=== PATIENT | female | born 1975 | race Caucasian/White ===

== ENCOUNTER 2016-05-08 15:52 | Emergency (ER) | payer SELFPAY ==
[2016-05-08] MEDS ORDERED: fentaNYL Inj 100 MCG/2 ML VIAL IVP ONE ×2 (16:02→17:07)
[2016-05-08] MEDS ORDERED: KETOROLAC 30 MG/1 ML VIAL IVP ONE (16:02)
[2016-05-08] MEDS ORDERED: ONDANSETRON 4 MG/2 ML VIAL IVP ONE (16:02)
[2016-05-08] MEDS ORDERED: Sodium Chloride 0.9% 1,000 ML PRIMARY IV ONE (16:02)
[2016-05-08] MEDS ORDERED: NORMAL SALINE 10 ML SYRINGE FLUSH IVP PRN (16:02)
[2016-05-08 16:21] LABS: BASOPHILS # (AUTO) 0.03 10*3/UL; BASOPHILS % (AUTO) 0.3 % (0-1); EOSINOPHILS % (AUTO) 3.6 % (0-8); HEMATOCRIT 42.9 % (37.0-47.0); HEMOGLOBIN 14.6 g/dL (12.0-16.0); IMM GRAN % (AUTO) 0.2 % (0-5); IMM GRAN# (AUTO) 0.02 10*3/UL; LYMPHOCYTES # (AUTO) 4.42 10*3/uL; LYMPHOCYTES % (AUTO) 41.3 % (10-50); MEAN CORPUSCULAR HEMOGLOBIN 32.6 PG (27-31); MEAN PLATELET VOLUME 9.2 FL (7.4-12.2); MONOCYTES # (AUTO) 0.95 10*3/UL (0.3-0.8); MONOCYTES % (AUTO) 8.9 % (5-15); NEUTROPHILS # (AUTO) 4.89 10*3/UL; NEUTROPHILS % (AUTO) 45.7 % (50-80); RDW COEFFICIENT OF VARIATION 12.5 % (11.5-14.5); RED BLOOD COUNT 4.48 10^6/uL (4.20-5.40); WHITE BLOOD COUNT 10.69 10^3/uL (4.8-10.8)
[2016-05-08 16:32] LABS: PLATELET MORPHOLOGY COMMENT NORMAL MORPHOLOGY (NORM)
[2016-05-08 16:42] VITALS: TEMP 98.2
[2016-05-08 16:45] LABS: BILIRUBIN,URINE NEGATIVE (NEG); CLARITY,URINE CLOUDY (CLEAR); GLUCOSE, URINE (UA) NEGATIVE (NEG); NITRATE,URINE POSITIVE (NEG); OCCULT BLOOD,URINE NEGATIVE (NEG); PH,URINE 5.5 (5.0-8.5); PROTEIN,URINE TRACE mg/dl (NEG); URINE SAMPLE TYPE CLEAN CATCH URINE
[2016-05-08 16:46] LABS: BACTERIA,URINE MODERATE; LEUKOCYTE ESTERASE ,URINE TRACE (NEG); RBC,URINE 40-50 /hpf; SQUAMOUS EPITHELIAL CELL,UR RARE; UROBILINOGEN,URINE 0.2 EU/dL (0.2)
[2016-05-08 16:48] LABS: AMYLASE 34 U/L (30-110); ASPARTATE AMINO TRANSFERASE 25 IU/L (8-39); BILIRUBIN,TOTAL 0.5 mg/dL (0.3-1.2); BLOOD UREA NITROGEN 15 mg/dL (7-22); BUN/CREATININE RATIO 21.42 (6-20); C-REACTIVE PROTEIN 0.6 mg/dL (0.0-0.9); CALCIUM 10.4 mg/dL (8.7-10.7); CHLORIDE 105 meq/L (98-112); CREATININE 0.7 mg/dL (0.50-1.20); EST GLOMERULAR FILTRATION > 60 (>60 ml/min/1.73m(2)); GLUCOSE 93 mg/dL (78-110); POTASSIUM 4.3 meq/L (3.8-5.2); SODIUM 140 meq/L (135-145)
[2016-05-08 16:57] VITALS: RESP 16
--- NOTE | 2016-05-08 17:16 | DI ---
CT ABDOMEN SCAN WITHOUT IV CONTRAST, 05/08/2016 4:03 PM : Clinical History: Right flank pain. Previous Exam: None at this facility. Scans are performed from the lower lung bases through the liver and kidneys without IV contrast. Sagi ttal and coronal reformatted images are generated. The lung bases are clear. There is moderate hepatomegaly but the liver parenchyma itself appears norm al. The patient is status post cholecystectomy. There is no abnormality of the spleen, pancreas, and adrenal glands. Both kidneys are normal in size, shape, position and contour. There is no hydronephro sis or hydroureter. Bilateral renal calculi are present in mid zone and lower pole calyces in these r karina in size between 1-2 mm and 3-4 mm in diameter. No ureteral calculi are seen. The bladder is part ially and the but no bladder calculus is present. There are no abnormal retrocrural or periaortic nod es. No ascites is present. READIN. There are bilateral nonobstructing ureteral calculi in mid zone and lower pole calyces in these r karina in size between 1-2 mm and 3-4 mm in diameter. No ureteral calculi are present. There is no hydr onephrosis or hydroureter. 2. Moderate hepatomegaly. CT PELVIS SCAN WITHOUT IV CONTRAST, 05/08/2016 4:03 PM : Clinical History: See above. Previous Exam: None. Scans are performed from the inferior margin of the liver and kidneys to the symphysis pubis without IV contrast. There is no free fluid collection and there is no adenopathy. The appendix is not visualized but ther e is no inflammatory mass in either in the cecal tip or in the right lower quadrant. The small bowel, terminal ileum, and ileocecal valve are normal. The colon is also normal. There are no hernias. The patient is status post hysterectomy. Neither ovary is visualized. READING: Normal CT pelvis scan.
[2016-05-08] MEDS ORDERED: cefTRIAXone Inj 1 GM in Sodium Chloride 0.9% 100 ML IV ONE (17:25)
--- NOTE | 2016-05-08 19:16 | PDOC ---
Abdomen/Flank HPI - General Chief Complaint: Abdomen Pain Stated Complaint: RIGHT FLANK PAIN Date Seen by Provider: 05/08/16 Time Seen by Provider: 16:40 Source: POSITIVE: Patient Exam Limitations: POSITIVE: No limitations Nurse's Notes Reviewed & Considered: Yes - History of Present Illness Initial Comments: The patient is a 40-year-old female who presents to the emergency department with complaints of right flank pain. She states that she had onset of right flank pain approximately 2 days ago. Today this pain seems to have intensified and she has associated nausea and vomiting. She states that she does have a history of kidney stones. In addition she was treated a year ago with a kidney infection. She denies any fever although she has had some subjective chills. She also reports some burning with urination. She denies any associated abdominal pain. She has had previous cholecystectomy, appendectomy, hysterectomy/bilateral salpingo-oophorectomy. She reports that her pain is about a 9 out of 10. - Patient Home Medications Home Medications: Home Medications Ciprofloxacin HCl [Cipro HCl] 500 mg PO Q12H #14 tab 05/08/16 Hydrocodone/Acetaminophen [[place] 7.5-325 Tablet] 1 - 2 each PO Q6H PRN #15 tablet 05/08/16 Ondansetron Odt [Zofran Odt] 8 mg PO Q6H PRN #6 tab.rapdis 05/08/16 - Patient Allergies Allergies/Adverse Reactions: Allergies Allergy/AdvReac Type Severity Reaction Status Date / Time codeine Allergy Intermediate HIVES Verified 05/08/16 15:58 Past Medical History - heen HEENT History: Denies History Cardiovascular History: Denies History Respiratory History: Denies History Gastrointestinal History: Denies History Genitourinary History: Kidney Stones Endocrine History: Denies History Musculoskeletal History: Denies History Neurological History: Denies History Blood Disorders: Denies History Psychiatric History: Denies History History of Sexually Transmitted Diseases: No Female Reproductive History: Denies History Obstetrical History: Denies History Cancer History: Denies History In Past Year Been Physically Harmed or Verbally Threatened: No History of MDRO: No Tobacco Use: Current Every Day Smoker Alcohol Use: Occasionally Substance Use Type: None Previous Surgical History: Yes Type / Date of Surgery: APPY, TOTAL HYSTERECTOMY, CHOLECYSTECTOMY Significant Family History: No pertinent family hx Past Medical History Reviewed: Reviewed - No Changes ROS - Limitations ROS Limitations: No Limitations Constitution: REPORTS: Chills. DENIES: Fever Cardiovascular: REPORTS: Denies Cardiac Symptoms Respiratory: REPORTS: Denies Resp Symptoms Neurological: REPORTS: Denies Neuro Symptoms Gastrointestinal: REPORTS: Nausea, Vomitting. DENIES: Abdominal Pain, Diarrhea Endocrine: REPORTS: Denies Symptoms Musculoskeletal: REPORTS: Denies MS Symptoms Genitourinary: REPORTS: Dysuria, Flank Pain. DENIES: Difficulty Urinating ENT: REPORTS: Denies Symptoms Skin: DENIES: Rash Abdominal/Flank Pain PE - General Appearance General Appearance: POSITIVE: Alert, Cooperative, No Acute Distress - HEENT HEENT: POSITIVE: Head Inspection Nml, Dry Mucous Membranes - Neck Neck: POSITIVE: Normal Inspection - Respiratory Respiratory: POSITIVE: No Respiratory Distress, Breath Sounds Normal - Cardiovascular Cardiovascular: POSITIVE: Regular Rate and Rhythm, Heart Sounds Normal - Abdomen Abdomen: Soft: (All Quadrants), Denies Tenderness: (All Quadrants), No Distention: (All Quadrants) - Back Back: POSITIVE: CVA Tenderness (R). NEGATIVE: CVA Tenderness (L) - Skin Skin: POSITIVE: Intact, No Rash - Extremities Extremity: Normal Inspection: (All Extremities) Abdomen Progress - Results Reviewed by me Xrays/CTs/US Reviewed by me: Yes Discussed with Radiologist: Yes Radiology Findings: CT scan of the abdomen and pelvis without IV contrast reveals several small intrarenal stones with no evidence of obstructive uropathy radiologist. Lab Results Reviewed: Yes Lab Results:: Laboratory Results 05/08/16 05/08/16 Range/Units 16:14 16:19 WBC 10.69 (4.8-10.8) 10^3/uL RBC 4.48 (4.20-5.40) 10^6/uL Hgb 14.6 (12.0-16.0) g/dL Hct 42.9 (37.0-47.0) % MCV 95.8 (81-99) FL MCH 32.6 H (27-31) PG MCHC 34.0 (33-37) g/dL RDW Std Deviation 42.5 (39-50) fL RDW Coeff of Jennifer 12.5 (11.5-14.5) % Plt Count 388 H (140-350) 10*3/uL MPV 9.2 (7.4-12.2) FL Immature Gran % (Auto) 0.2 (0-5) % Neut % (Auto) 45.7 L (50-80) % Lymph % (Auto) 41.3 (10-50) % Bowie % (Auto) 8.9 (5-15) % Eos % (Auto) 3.6 (0-8) % Baso % (Auto) 0.3 (0-1) % Immature Gran # (Auto) 0.02 10*3/UL Neut # (Auto) 4.89 10*3/UL Lymph # (Auto) 4.42 10*3/uL Bowie # (Auto) 0.95 H (0.3-0.8) 10*3/UL Eos # (Auto) 0.38 10*3/UL Baso # (Auto) 0.03 10*3/UL WBC Morphology Comment Normal morphology (NORM) Plt Morphology Comment Normal morphology (NORM) RBC Morph Comment Normal morphology (NORM) Sodium 140 (135-145) meq/L Potassium 4.3 (3.8-5.2) meq/L Chloride 105 (98-112) meq/L Carbon Dioxide 24 (23-33) meq/L Anion Gap 11 (5-20) BUN 15 (7-22) mg/dL Creatinine 0.7 (0.50-1.20) mg/dL Estimated GFR > 60 (>60 ml/min/1.73m(2)) BUN/Creatinine Ratio 21.42 H (6-20) Glucose 93 (78-110) mg/dL Calculated Osmolality 290.0 (267-292) mOsm/kg Calcium 10.4 (8.7-10.7) mg/dL Total Bilirubin 0.5 (0.3-1.2) mg/dL AST 25 (8-39) IU/L ALT 41 (9-52) IU/L Alkaline Phosphatase 78 (38-126) IU/L C-Reactive Protein 0.6 (0.0-0.9) mg/dL Total Protein 8.0 (6.1-8.0) g/dL Albumin 4.7 (3.5-4.8) g/dL Globulin 3.3 (2.50-4.10) g/dL Albumin/Globulin Ratio 1.40 (1.3-2.0) mg/g Amylase 34 (30-110) U/L Lipase 100 (23-300) IU/L Ur Collection Type Clean catch urine Urine Color Yellow Urine Clarity Cloudy (CLEAR) Urine pH 5.5 (5.0-8.5) Ur Specific [place] 1.025 (1.005-1.030) Urine Protein Trace (NEG) mg/dl Urine Glucose (UA) Negative (NEG) mg/dL Urine Ketones Negative (NEG) Urine Occult Blood Negative (NEG) Urine Nitrate Positive H (NEG) Urine Bilirubin Negative (NEG) Urine Urobilinogen 0.2 (0.2) EU/dL Ur Leukocyte Esterase Trace (NEG) Urine RBC 40-50 (NONE) /hpf Urine WBC 10-20 (NONE) Ur Squamous Epith Cells Rare (NONE) Ur Renal Epithelial Cell None (NONE) Urine Crystals None Urine Bacteria Moderate (NONE) Urine Casts None (NONE) Urine Mucus None (NONE) Urine Trichomonas None (NONE) Urine Yeast None (NONE) Ur Culture Indicated? Culture set - Patient's Progress MDM / ED Course: An IV was established and the patient did receive a 1 L bolus of normal saline as well as 30 mg of Toradol IV, 50 mg of fentanyl IV and 4 mg of Zofran IV. Her nausea improved and her pain level improved to about a 6 out of 10. She received a second dose of fentanyl after which her pain improved significantly. Results of her CT scan shows evidence of intrarenal stones without obstructive uropathy. Her urinalysis does reveal blood as well as some white blood cells. The remainder of her blood work is essentially unremarkable. It is possible that she may have passed a small stone and now has some component of infection. She was given Rocephin IV and will be started on Cipro 500 mg twice a day for 7 days. Urine culture is pending. She is advised to take ibuprofen 600 mg every 6 hours as needed for pain and was given [place] 7.5/325 as needed for breakthrough pain. She will return to the emergency room if increased pain, vomiting or dehydration, fever, any worsening or change in symptoms. She is advised follow-up with primary care in 5-7 days. - Consult Counseled: POSITIVE: Patient, Family, RE: Lab Results, RE: Radiology Results, RE : DX, RE: Need for F/U Patient Care Time - Estimated PCT Patient Care Time (In Minutes): 30 Vital Signs - Recent Vital Signs Vital Signs: Vital Signs (Last 8 hours) Temp Pulse Resp BP Pulse Ox 01/16/17 16:56 99 16 126/88 93 05/08/16 16:38 98.2 F 119 H 20 144/94 94 - VS Reviewed Vital Signs Reviewed: Yes Discharge Clinical Impression: Flank pain, UTI (urinary tract infection), Kidney stones Condition: Stable Prescriptions / Orders: Ciprofloxacin HCl [Cipro HCl] 500 mg PO Q12H #14 tab Hydrocodone/Acetaminophen [[place] 7.5-325 Tablet] 1 - 2 each PO Q6H PRN #15 tablet PRN Reason: Pain Ondansetron Odt [Zofran Odt] 8 mg PO Q6H PRN #6 tab.rapdis PRN Reason: Nausea / Vomiting Patient Instructions Given at Discharge: Kidney Stones (ED), Urinary Tract Infection in Women (ED) Additional Instructions: The CAT scan does reveal small kidney stones in both kidneys however no obvious sign of kidney stone in the ureter or causing any obstruction. It is possible that you may have passed one of the stones. The urine also does show evidence of infection. You have been prescribed Cipro 500 mg twice a day for one week for treatment of infection. In addition you should take ibuprofen 600 mg every 6 hours as needed for pain and you were prescribed [place] 7.5/325 one to 2 every 6 hours as needed for pain. You can also take Zofran 8 mg every 6 hours as needed for nausea. Recommend that you push fluids. Return to the emergency room if increased pain, vomiting or dehydration, any worsening or change in symptoms. Recommend follow-up with primary care in 5-7 days. Follow Up With: NONE,NONE [Primary Care Provider] -
== END 2016-05-08 18:12 | disposition home or self-care (01) ==
LOC: ER 15:52
DX: N39.0 Urinary tract infection, site not specified (principal); N20.2 Calculus of kidney with calculus of ureter; R10.31 Right lower quadrant pain; R11.2 Nausea with vomiting, unspecified; R30.0 Dysuria
CPT/HCPCS: 74176; 80053; 81001; 81003; 82150; 83690; 85025; 86140; 87077; 87088; 87186 ×2; 96361; 96365; 96375; 96376; 99284 ×2; J1885; J3010; J0696; J2405; J7030; J7050

== ENCOUNTER 2016-05-21 18:45 | Emergency (ER) | payer SELFPAY ==
[2016-05-21] MEDS ORDERED: KETOROLAC 30 MG/1 ML VIAL IVP ONE (19:10)
[2016-05-21] MEDS ORDERED: ONDANSETRON 4 MG/2 ML VIAL IVP ONE (19:10)
[2016-05-21] MEDS ORDERED: Sodium Chloride 0.9% 1,000 ML PRIMARY IV ONE ×2 (19:23→19:35)
[2016-05-21 19:31] LABS: BASOPHILS # (AUTO) 0.07 10*3/UL; BASOPHILS % (AUTO) 0.5 % (0-1); EOSINOPHILS % (AUTO) 3.2 % (0-8); HEMATOCRIT 41.6 % (37.0-47.0); HEMOGLOBIN 14.4 g/dL (12.0-16.0); IMM GRAN % (AUTO) 0.2 % (0-5); IMM GRAN# (AUTO) 0.03 10*3/UL; LYMPHOCYTES # (AUTO) 5.87 10*3/uL; LYMPHOCYTES % (AUTO) 42.3 % (10-50); MEAN CORPUSCULAR HEMOGLOBIN 33.2 PG (27-31); MEAN CORPUSCULAR HGB CONC 34.6 g/dL (33-37); MEAN PLATELET VOLUME 9.1 FL (7.4-12.2); MONOCYTES # (AUTO) 1.16 10*3/UL (0.3-0.8); MONOCYTES % (AUTO) 8.4 % (5-15); NEUTROPHILS # (AUTO) 6.31 10*3/UL; NEUTROPHILS % (AUTO) 45.4 % (50-80); RDW COEFFICIENT OF VARIATION 12.4 % (11.5-14.5); RED BLOOD COUNT 4.34 10^6/uL (4.20-5.40); WHITE BLOOD COUNT 13.88 10^3/uL (4.8-10.8)
[2016-05-21 19:34] LABS: ASPARTATE AMINO TRANSFERASE 30 IU/L (8-39); BILIRUBIN,TOTAL 0.5 mg/dL (0.3-1.2); BLOOD UREA NITROGEN 15 mg/dL (7-22); BUN/CREATININE RATIO 18.75 (6-20); CALCIUM 9.9 mg/dL (8.7-10.7); CHLORIDE 102 meq/L (98-112); CREATININE 0.8 mg/dL (0.50-1.20); EST GLOMERULAR FILTRATION > 60 (>60 ml/min/1.73m(2)); GLUCOSE 85 mg/dL (78-110); POTASSIUM 4.3 meq/L (3.8-5.2); SODIUM 139 meq/L (135-145)
[2016-05-21 19:44] LABS: BILIRUBIN,URINE NEGATIVE (NEG); GLUCOSE, URINE (UA) NEGATIVE (NEG); LEUKOCYTE ESTERASE ,URINE NEGATIVE (NEG); NITRATE,URINE NEGATIVE (NEG); OCCULT BLOOD,URINE LARGE (NEG); PROTEIN,URINE NEGATIVE (NEG); UROBILINOGEN,URINE 0.2 EU/dL (0.2)
[2016-05-21 19:45] VITALS: RESP 18; TEMP 98.2
[2016-05-21] MEDS ORDERED: MORPHINE SULFATE 4 MG/1 ML IVP ONE ×2 (19:53→21:03)
[2016-05-21 19:57] LABS: PLATELET MORPHOLOGY COMMENT NORMAL MORPHOLOGY (NORM)
--- NOTE | 2016-05-21 19:59 | PDOC ---
Female Problem HPI - General Chief Complaint: Genitourinary Complaint Stated Complaint: Bilateral Flank Pain Date Seen by Provider: 05/21/16 Time Seen by Provider: 19:55 Source: POSITIVE: Patient, Spouse Exam Limitations: POSITIVE: No limitations Nurse's Notes Reviewed & Considered: Yes - History of Present Illness Initial Comments: Patient comes in today with chief complaint of bilateral flank pain. Patient was seen on May 08 diagnosed with urinary tract infection and renal stones. She was discharged on Cipro which she took for 2 or 3 days and then quit yesterday she began to develop flank pain again took some Cipro and comes in now with increasing pain. She denies any fever does have chills, she denies any nausea vomiting or diarrhea, no rashes, no chest pain, shortness breath, or cough. Body Location Affected: REPORTS: Back Timing: REPORTS: Constant Duration: <24 hours Severity: Moderate Quality: REPORTS: "Pain", Stabbing, Throbbing Context: REPORTS: Other (Known kidney stone and UTI.) Location of Pain: REPORTS: Right, Left, Abdominal Pain Sexual History: REPORTS: Active Urinary Symptoms: REPORTS: Blood in Urine, Discomfort w/ Urination Similar Symptoms Previously: Yes Recent Care Received: REPORTS: Recently Seen, Treated by MD Any Prior Injuries Related to Current Complaint?: No - Patient Home Medications Home Medications: Home Medications Ciprofloxacin HCl [Cipro HCl] 500 mg PO Q12H #14 tab 05/08/16 Hydrocodone/Acetaminophen [[place] 7.5-325 Tablet] 1 - 2 each PO Q6H PRN #15 tablet 05/08/16 Ondansetron Odt [Zofran Odt] 8 mg PO Q6H PRN #6 tab.rapdis 05/08/16 - Patient Allergies Allergies/Adverse Reactions: Allergies Allergy/AdvReac Type Severity Reaction Status Date / Time codeine Allergy Intermediate HIVES Verified 05/21/16 18:53 Past Medical History - heen HEENT History: Denies History Cardiovascular History: Denies History Respiratory History: Denies History Gastrointestinal History: Denies History Genitourinary History: Kidney Stones Endocrine History: Denies History Musculoskeletal History: Denies History Prosthesis or Implant: No Neurological History: Denies History Blood Disorders: Denies History Psychiatric History: Denies History History of Sexually Transmitted Diseases: No Female Reproductive History: Hysterectomy Obstetrical History: Denies History Cancer History: Denies History In Past Year Been Physically Harmed or Verbally Threatened: No History of MDRO: No Tobacco Use: Current Every Day Smoker Alcohol Use: Occasionally Substance Use Type: None Previous Surgical History: Yes Type / Date of Surgery: APPY, TOTAL HYSTERECTOMY, CHOLECYSTECTOMY Significant Family History: No pertinent family hx ROS - Limitations ROS Limitations: No Limitations Constitution: REPORTS: Chills Cardiovascular: REPORTS: Denies Cardiac Symptoms Respiratory: REPORTS: Denies Resp Symptoms Neurological: REPORTS: Denies Neuro Symptoms Gastrointestinal: REPORTS: Abdominal Pain Endocrine: REPORTS: Denies Symptoms Musculoskeletal: REPORTS: Back Pain Genitourinary: REPORTS: Dysuria Eyes: REPORTS: Denies Symptoms ENT: REPORTS: Denies Symptoms Skin: REPORTS: Denies Skin Symptoms Lympathic: REPORTS: Denies Lympathic Symptoms Immunologic: POSITIVE: Denies Symptoms Psychiatric: POSITIVE: Denies Psych Symptoms Female Genitourinary Exam - General Appearance General Appearance: POSITIVE: Alert, Cooperative, No Evidence of Trauma, Anxious - HEENT HEENT: POSITIVE: Head Inspection Nml, Eyes Inspection Nml, Ears Inspection Nml, Nose Inspection Nml, PERRL, EOMI - Neck Neck: POSITIVE: Normal Inspection, No Apparent Injury - Respiratory Respiratory: POSITIVE: No Respiratory Distress, Breath Sounds Normal, Chest Non- Tender - Cardiovascular Cardiovascular: POSITIVE: Regular Rate and Rhythm, Heart Sounds Normal - Abdomen Abdomen: POSITIVE: Soft, Normal Bowel Sounds, No Organomegaly, Tenderness ( Tenderness to suprapubic region.) - Back Back: POSITIVE: CVA Tenderness (R), CVA Tenderness (L) - Skin Skin: POSITIVE: Intact, Normal For Race, Warm, Dry, No Rash - Extremities Extremity: Non-Tender: (All Extremities), Normal ROM: (All Extremities), Normal Inspection: (All Extremities) - Neurological / Psychological Neurological: POSITIVE: Affect Apporpriate, Oriented X3 Female Genitourinary Progress - Results Reviewed by me Xrays/CTs/US Reviewed by me: Yes Discussed with Radiologist: No Lab Results Reviewed: Yes Lab Results:: Laboratory Results 05/21/16 Range/Units 19:25 WBC 13.88 H (4.8-10.8) 10^3/uL RBC 4.34 (4.20-5.40) 10^6/uL Hgb 14.4 (12.0-16.0) g/dL Hct 41.6 (37.0-47.0) % MCV 95.9 (81-99) FL MCH 33.2 H (27-31) PG MCHC 34.6 (33-37) g/dL RDW Std Deviation 42.7 (39-50) fL RDW Coeff of Jennifer 12.4 (11.5-14.5) % Plt Count 398 H (140-350) 10*3/uL MPV 9.1 (7.4-12.2) FL Immature Gran % (Auto) 0.2 (0-5) % Neut % (Auto) 45.4 L (50-80) % Lymph % (Auto) 42.3 (10-50) % Ross % (Auto) 8.4 (5-15) % Eos % (Auto) 3.2 (0-8) % Baso % (Auto) 0.5 (0-1) % Immature Gran # (Auto) 0.03 10*3/UL Neut # (Auto) 6.31 10*3/UL Lymph # (Auto) 5.87 10*3/uL Ross # (Auto) 1.16 H (0.3-0.8) 10*3/UL Eos # (Auto) 0.44 10*3/UL Baso # (Auto) 0.07 10*3/UL WBC Morphology Comment See comments (NORM) Plt Morphology Comment Normal morphology (NORM) RBC Morph Comment Normal morphology (NORM) Sodium 139 (135-145) meq/L Potassium 4.3 (3.8-5.2) meq/L Chloride 102 (98-112) meq/L Carbon Dioxide 25 (23-33) meq/L Anion Gap 12 (5-20) BUN 15 (7-22) mg/dL Creatinine 0.8 (0.50-1.20) mg/dL Estimated GFR > 60 (>60 ml/min/1.73m(2)) BUN/Creatinine Ratio 18.75 (6-20) Glucose 85 (78-110) mg/dL Calculated Osmolality 287.0 (267-292) mOsm/kg Calcium 9.9 (8.7-10.7) mg/dL Total Bilirubin 0.5 (0.3-1.2) mg/dL AST 30 (8-39) IU/L ALT 40 (9-52) IU/L Alkaline Phosphatase 87 (38-126) IU/L Total Protein 8.0 (6.1-8.0) g/dL Albumin 4.7 (3.5-4.8) g/dL Globulin 3.4 (2.50-4.10) g/dL Albumin/Globulin Ratio 1.30 (1.3-2.0) mg/g Ur Collection Type Clean catch urine Urine Color Yellow Urine Clarity Cloudy (CLEAR) Urine pH 6.0 (5.0-8.5) Ur Specific [place] 1.010 (1.005-1.030) Urine Protein Negative (NEG) mg/dl Urine Glucose (UA) Negative (NEG) mg/dL Urine Ketones Negative (NEG) Urine Occult Blood Large H (NEG) Urine Nitrate Negative (NEG) Urine Bilirubin Negative (NEG) Urine Urobilinogen 0.2 (0.2) EU/dL Ur Leukocyte Esterase Negative (NEG) Urine RBC >100 (NONE) /hpf Urine WBC 1-3 (NONE) Ur Squamous Epith Cells Rare (NONE) Ur Renal Epithelial Cell None (NONE) Urine Crystals None Urine Bacteria Rare (NONE) Urine Casts None (NONE) Urine Mucus None (NONE) Urine Trichomonas None (NONE) Urine Yeast None (NONE) Ur Culture Indicated? Culture not set - Patient's Progress Pain Medication Addressed: POSITIVE: Yes Re-Examine Time: 21:01 Status: POSITIVE: Improved MDM / ED Course: Patient was examined, an IV was started, blood drawn and sent to the lab for studies, ultrasound of her kidneys was obtained. She received initially Toradol and Zofran as well as a liter of normal saline her pain still did not improve so she then received morphine which resulted in improvement. Findings: Urine shows bacteria present with nitrites and white cells present. CBC shows elevated white count. Ultrasound shows no hydronephrosis nor hydroureter. Urinary jets at the [facility]. Assessment: Urinary tract infection Plan discharge home on nitrofurantoin and [place]. Increase hydration. Follow up with urology. - Consult Counseled: POSITIVE: Patient, Family, RE: Lab Results, RE: Radiology Results, RE : DX, RE: Need for F/U Patient Care Time - Estimated PCT Patient Care Time (In Minutes): 45 Vital Signs - Recent Vital Signs Vital Signs: Vital Signs (Last 8 hours) Temp Pulse Resp BP Pulse Ox 05/21/16 18:45 98.2 F 110 H 18 153/107 93 - VS Reviewed Vital Signs Reviewed: Yes Discharge Clinical Impression: Renal colic, Urinary tract infectious disease Discharge Disposition: Discharged to Home Condition: Stable Patient Instructions Given at Discharge: Urinary Tract Infection in Women (ED)
[2016-05-21 20:01] LABS: CLARITY,URINE CLOUDY (CLEAR); URINE SAMPLE TYPE CLEAN CATCH URINE
[2016-05-21 20:02] LABS: BACTERIA,URINE RARE; RBC,URINE >100 /hpf; SQUAMOUS EPITHELIAL CELL,UR RARE
[2016-05-21] MEDS ORDERED: SULFAMETHOXAZOLE/TRIMETHOPRIM 800/160 MG TABLET PO ONE (20:36)
--- NOTE | 2016-05-21 21:23 | DI ---
HISTORY: Renal colic. COMPARISON: CT dated 05/08/2016. TECHNIQUE: Sonographic images were obtained through the retroperitoneum and submitted for interpreta tion. FINDINGS: Examination demonstrates multiple renal calcifications bilaterally without hydronephrosis. The urinary bladder is unremarkable. The kidneys measure 11.8 cm in length, bilaterally. IMPRESSION: 1. No hydronephrosis. 2. Bilateral renal calcifications consistent with nephrolithiasis. NOTE: The interpreting Radiologist was not present at the time of ultrasound interrogation.
== END 2016-05-21 21:37 | disposition home or self-care (01) ==
LOC: ER 18:45
DX: N23 Unspecified renal colic (principal); N39.0 Urinary tract infection, site not specified; R10.11 Right upper quadrant pain; M54.5 Low back pain; Z72.0 Tobacco use
CPT/HCPCS: 76770; 80053; 81001; 81003; 85025; 96361; 96374; 96375; 96376; 99283 ×2; J1885; J2270; J2405; J7030

== ENCOUNTER 2016-08-07 12:40 | Emergency (ER) | payer SELFPAY ==
[2016-08-07] MEDS ORDERED: KETOROLAC 30 MG/1 ML VIAL IVP ONE (13:01)
[2016-08-07] MEDS ORDERED: NORMAL SALINE 10 ML SYRINGE FLUSH IVP PRN (13:01)
[2016-08-07] MEDS ORDERED: HYDROmorphone 2 MG/1 ML IVP ONE ×3 (13:01→16:01)
[2016-08-07] MEDS ORDERED: Sodium Chloride 0.9% 1,000 ML PRIMARY IV ONE (13:01)
[2016-08-07] MEDS ORDERED: TAMSULOSIN 0.4 MG CAPSULE PO ONE (13:03)
[2016-08-07 13:22] VITALS: RESP 16; TEMP 98.4
[2016-08-07] MEDS ORDERED: ONDANSETRON 4 MG/2 ML VIAL IVP ONE (13:41)
[2016-08-07] MEDS ORDERED: ONDANSETRON 4 MG/2 ML VIAL ONE (13:43)
[2016-08-07 13:47] LABS: BILIRUBIN,URINE NEGATIVE (NEG); COLOR,URINE YELLOW; GLUCOSE, URINE (UA) NEGATIVE (NEG); NITRATE,URINE NEGATIVE (NEG); OCCULT BLOOD,URINE LARGE (NEG); PH,URINE 6.5 (5.0-8.5); PROTEIN,URINE 30 mg/dl (NEG); UROBILINOGEN,URINE 0.2 EU/dL (0.2)
[2016-08-07 13:48] LABS: HEMATOCRIT 42.5 % (37.0-47.0); HEMOGLOBIN 14.4 g/dL (12.0-16.0); MEAN CORPUSCULAR HGB CONC 33.9 g/dL (33-37); MEAN CORPUSCULAR VOLUME 97.3 FL (81-99); RED BLOOD COUNT 4.37 10^6/uL (4.20-5.40)
[2016-08-07 13:49] LABS: BASOPHILS # (AUTO) 0.06 10*3/UL; BASOPHILS % (AUTO) 0.5 % (0-1); EOSINOPHILS # (AUTO) 0.43 10*3/UL; EOSINOPHILS % (AUTO) 3.5 % (0-8); LYMPHOCYTES # (AUTO) 3.23 10*3/uL; MEAN PLATELET VOLUME 9.4 FL (7.4-12.2); MONOCYTES # (AUTO) 0.98 10*3/UL (0.3-0.8); NEUTROPHILS # (AUTO) 7.56 10*3/UL; NEUTROPHILS % (AUTO) 61.5 % (50-80); PLATELET MORPHOLOGY COMMENT NORMAL MORPHOLOGY (NORM); RBC MORPHOLOGY COMMENT NORMAL MORPHOLOGY (NORM); WBC MORPHOLOGY COMMENT NORMAL MORPHOLOGY (NORM)
[2016-08-07 13:50] LABS: BLOOD UREA NITROGEN 16 mg/dL (7-22); CALCIUM 9.2 mg/dL (8.7-10.7); EST GLOMERULAR FILTRATION > 60 (>60 ml/min/1.73m(2)); SERUM ALBUMIN 4.3 g/dL (3.5-4.8)
[2016-08-07 14:05] LABS: CLARITY,URINE SLIGHTLY CLOUDY (CLEAR)
[2016-08-07 14:07] LABS: SQUAMOUS EPITHELIAL CELL,UR MODERATE; URINE SAMPLE TYPE CLEAN CATCH URINE
[2016-08-07 14:08] LABS: BACTERIA,URINE FEW
[2016-08-07 14:31] LABS: RBC,URINE 80-100 /hpf
[2016-08-07 14:33] LABS: WBC,URINE 0
--- NOTE | 2016-08-07 15:47 | DI ---
HISTORY: Right flank pain. History of kidney stones. COMPARISON: None available. TECHNIQUE: Unenhanced images of the abdomen and pelvis were obtained and submitted for interpretatio n. FINDINGS: Limited sections of the lung bases demonstrate no focal pulmonary mass. There is minimal bibasilar atelectasis. The unenhanced liver, spleen, surgically removed gallbladder, pancreas, both kidneys, and both adrena l glands demonstrate no acute findings. Scattered 2-3 mm calcified foci in both kidneys are reminiscent of nonobstructive renal calculi. There is scattered colonic diverticulosis. There is no free air or free fluid. The small bowel loop s are not dilated. There is no obstruction. The appendix is not clearly visualized although there are no secondary signs of appendicitis. The uterus is not clearly identified. The urinary bladder is partially distended. There is no destructive osseous abnormality. There is no radiopaque ureteric calculus. The stomach is collapsed and partially thickened. The GE junction is prominent. IMPRESSION: 1. Minimal bibasilar atelectasis. 2. Scattered 2-3 mm calcified foci in both kidneys reminiscent of nonobstructive renal calculi. 3. There is scattered colonic diverticulosis. 4. The stomach is collapsed and partially thickened. The GE junction is prominent.
--- NOTE | 2016-08-07 17:51 | DI ---
HISTORY: Right flank pain. COMPARISON: None available. TECHNIQUE: Contiguous axial enhanced images of the abdomen and pelvis were obtained from the lung ba ses through the ischial tuberosities. The images were then submitted for interpretation. FINDINGS: The heart size is normal, and the lung bases are clear. The liver and spleen are normal in size and contour and demonstrate no focal abnormalities. The maynor ent is status post cholecystectomy. The pancreas and adrenal glands are normal. The kidneys are in anatomic position. No evidence of hydronephrosis. No ureter obstruction. The visualized vascular structures are normal. Decompressed splenic flexure and descending colon with constipation in the transverse colon and right colon. Minimal terminal ilium thickening. The patient is status post hysterectomy. IMPRESSION: 1. No evidence of hydronephrosis. No ureter obstruction. 2. Decompressed splenic flexure and descending colon with constipation in the transverse colon and ri ght colon. Minimal terminal ilium thickening. 3. Status post hysterectomy and gallbladder removal. NOTIFICATION: The above findings were phoned to [facility] in the ER Department on 08/07/2016 a t 08:10 PM EST.
--- NOTE | 2016-08-07 19:08 | PDOC ---
Female Problem HPI - General Chief Complaint: Genitourinary Complaint Stated Complaint: RIGHT FLANK PAIN Date Seen by Provider: 08/07/16 Time Seen by Provider: 13:00 Source: POSITIVE: Patient Exam Limitations: POSITIVE: No limitations Nurse's Notes Reviewed & Considered: Yes - History of Present Illness Initial Comments: The patient is a 40-year-old female. She states that around 3 AM this morning she was awakened by right flank pain. She also states she's had some dysuria and hematuria. She states she has a history of ureterolithiasis and has in the past had a ureterovesical stents placed, she thinks on the right, but she's not sure. She [facility] [place]. 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 She states that she has been advised that she might need lithotripsy, but has not had this procedure performed because of lack of insurance. She has had an appendectomy, cholecystectomy and hysterectomy. She is presently on no medications. Body Location Affected: REPORTS: Back (Right flank) Timing: REPORTS: Abrupt, Intermittent, Getting Worse Duration: <24 hours (Onset 10 hours ago; worse in the past 2 hours.) Severity: Moderate Quality: REPORTS: Cramping, "Pain", Sharpness Context: DENIES: Frequent Bathing, Poor Hygiene, Frequent [place], Known STD Exposure, Unknown STD Exposure, Possible STD Exposure, Multiple Partners, Known , Recent Vaginal Delivery, Recent Delivery, Recent Miscarriage, Recent Trauma, Recent Surgery, Other Location of Pain: REPORTS: Right, Flank Pain Vaginal Bleeding: DENIES: Abnormal Bleeding, More Severe Than Periods, Heavier Than Periods, Similar to Periods, Division Superintendent Than Periods, Spotting, Passing Clots , Passing Tissue, Other : REPORTS: S/P Hysterectomy Urinary Symptoms: REPORTS: Blood in Urine, Discomfort w/ Urination Discharge: DENIES: Vaginal Discharge, Vag Fluid Leak- , Breast Discharge, Other Similar Symptoms Previously: Yes Recent Care Received: REPORTS: Denies Any Prior Injuries Related to Current Complaint?: No - Patient Home Medications Home Medications: Home Medications Ciprofloxacin HCl [Cipro HCl] 500 mg PO Q12H #20 tab 08/07/16 HYDROcodone/APAP 10/325 Tab [[place] 10/325 Tab] 1 tab PO Q6H PRN #20 tab Tamsulosin HCl [Flomax] 0.4 mg PO DAILY #20 cap 08/07/16 - Patient Allergies Allergies/Adverse Reactions: Allergies Allergy/AdvReac Type Severity Reaction Status Date / Time codeine Allergy Intermediate HIVES Verified 08/07/16 12:55 Past Medical History - heen HEENT History: Denies History Cardiovascular History: Denies History Respiratory History: Denies History Gastrointestinal History: Denies History Genitourinary History: Kidney Stones Endocrine History: Denies History Musculoskeletal History: Denies History Prosthesis or Implant: No Neurological History: Denies History Blood Disorders: Denies History Psychiatric History: Denies History History of Sexually Transmitted Diseases: No Female Reproductive History: Hysterectomy Cancer History: Denies History In Past Year Been Physically Harmed or Verbally Threatened: No History of MDRO: No Tobacco Use: Current Every Day Smoker Alcohol Use: Occasionally Substance Use Type: None Previous Surgical History: Yes Type / Date of Surgery: APPY, TOTAL HYSTERECTOMY, CHOLECYSTECTOMY Significant Family History: No pertinent family hx Past Medical History Reviewed: Reviewed - No Changes ROS - Limitations ROS Limitations: No Limitations Constitution: REPORTS: Denies Symptoms Cardiovascular: REPORTS: Denies Cardiac Symptoms Respiratory: REPORTS: Denies Resp Symptoms Neurological: REPORTS: Denies Neuro Symptoms Gastrointestinal: REPORTS: Denies GI Symptoms Endocrine: REPORTS: Denies Symptoms Musculoskeletal: REPORTS: Denies MS Symptoms Genitourinary: REPORTS: Dysuria, Hematuria, Other (Right flank pain) Eyes: REPORTS: Denies Symptoms ENT: REPORTS: Denies Symptoms Skin: REPORTS: Denies Skin Symptoms Lympathic: REPORTS: Denies Lympathic Symptoms Immunologic: POSITIVE: Denies Symptoms Psychiatric: POSITIVE: Denies Psych Symptoms Female Genitourinary Exam - General Appearance General Appearance: POSITIVE: Alert, Cooperative, No Acute Distress, No Evidence of Trauma - HEENT HEENT: POSITIVE: Head Inspection Nml, Eyes Inspection Nml, Ears Inspection Nml, Nose Inspection Nml, Oral/Dental Inspect. Nml, Pharynx Inspect. Nml, PERRL, EOMI - Neck Neck: POSITIVE: Normal Inspection, No Apparent Injury - Respiratory Respiratory: POSITIVE: No Respiratory Distress, Breath Sounds Normal, Chest Non- Tender - Cardiovascular Cardiovascular: POSITIVE: Regular Rate and Rhythm, Heart Sounds Normal, Equal Pulses, Strong Pulses Peripheral Pulses: Radial (R): 2+, Radial (L): 2+ - Abdomen Abdomen: POSITIVE: Soft, Normal Bowel Sounds, Non-Tender, No Distention, No Organomegaly - Back Back: POSITIVE: CVA Tenderness (R) (Patient states she has pain on percussion) - Skin Skin: POSITIVE: Intact, Normal For Race, Warm, Dry, No Rash - Extremities Extremity: Non-Tender: (All Extremities), Normal ROM: (All Extremities), Normal Inspection: (All Extremities) - Neurological / Psychological Neurological: 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 Subsequent CT scan abdomen and pelvis with IV contrast normal per radiologist. Lab Results Reviewed: Yes (80 to 100 red blood cells per high-power field) Lab Results:: Laboratory Results 08/07/16 08/07/16 Range/Units 13:20 13:36 WBC 12.29 H (4.8-10.8) 10^3/uL RBC 4.37 (4.20-5.40) 10^6/uL Hgb 14.4 (12.0-16.0) g/dL Hct 42.5 (37.0-47.0) % MCV 97.3 (81-99) FL MCH 33.0 H (27-31) PG MCHC 33.9 (33-37) g/dL RDW Std Deviation 43.8 (39-50) fL RDW Coeff of Jennifer 12.6 (11.5-14.5) % Plt Count 380 H (140-350) 10*3/uL MPV 9.4 (7.4-12.2) FL Immature Gran % (Auto) 0.2 (0-5) % Neut % (Auto) 61.5 (50-80) % Lymph % (Auto) 26.3 (10-50) % [place] % (Auto) 8.0 (5-15) % Eos % (Auto) 3.5 (0-8) % Baso % (Auto) 0.5 (0-1) % Immature Gran # (Auto) 0.03 10*3/UL Neut # (Auto) 7.56 10*3/UL Lymph # (Auto) 3.23 10*3/uL [place] # (Auto) 0.98 H (0.3-0.8) 10*3/UL Eos # (Auto) 0.43 10*3/UL Baso # (Auto) 0.06 10*3/UL WBC Morphology Comment Normal morphology (NORM) Plt Morphology Comment Normal morphology (NORM) RBC Morph Comment Normal morphology (NORM) Sodium 142 (135-145) meq/L Potassium 4.0 (3.8-5.2) meq/L Chloride 107 (98-112) meq/L Carbon Dioxide 24 (23-33) meq/L Anion Gap 11 (5-20) BUN 16 (7-22) mg/dL Creatinine 0.8 (0.50-1.20) mg/dL Estimated GFR > 60 (>60 ml/min/1.73m(2)) BUN/Creatinine Ratio 20.00 (6-20) Glucose 85 (78-110) mg/dL Calculated Osmolality 293.0 H (267-292) mOsm/kg Calcium 9.2 (8.7-10.7) mg/dL Total Bilirubin 0.5 (0.3-1.2) mg/dL AST 34 (8-39) IU/L ALT 27 (9-52) IU/L Alkaline Phosphatase 86 (38-126) IU/L Total Protein 7.9 (6.1-8.0) g/dL Albumin 4.3 (3.5-4.8) g/dL Globulin 3.6 (2.50-4.10) g/dL Albumin/Globulin Ratio 1.10 L (1.3-2.0) mg/g Ur Collection Type Clean catch urine Urine Color Yellow Urine Clarity Slightly cloudy (CLEAR) Urine pH 6.5 (5.0-8.5) Ur Specific [place] 1.020 (1.005-1.030) Urine Protein 30 (NEG) mg/dl Urine Glucose (UA) Negative (NEG) mg/dL Urine Ketones Negative (NEG) Urine Occult Blood Large H (NEG) Urine Nitrate Negative (NEG) Urine Bilirubin Negative (NEG) Urine Urobilinogen 0.2 (0.2) EU/dL Ur Leukocyte Esterase Negative (NEG) Urine RBC 80-100 (NONE) /hpf Urine WBC 0 (NONE) Ur Squamous Epith Cells Moderate (NONE) Ur Renal Epithelial Cell None (NONE) Urine Crystals None Urine Bacteria Few (NONE) Urine Casts None (NONE) Urine Mucus None (NONE) Urine Trichomonas None (NONE) Urine Yeast None (NONE) Ur Culture Indicated? Culture not set - Patient's Progress Pain Medication Addressed: POSITIVE: Yes (Patient given ketorolac and Dilaudid IV with good pain relief on discharge) School/Work Release Addressed: POSITIVE: Yes (Work excuse for tomorrow given) Re-Examine Time: 18:20 Re-Examine Comment: Pain relieved on discharge Status: POSITIVE: Improved, Re-Examined - Consult Counseled: POSITIVE: Patient, RE: Lab Results, RE: Radiology Results, RE: DX, RE : Need for F/U Patient Care Time - Estimated PCT Patient Care Time (In Minutes): 70 Vital Signs - Recent Vital Signs Vital Signs: Vital Signs (Last 8 hours) Temp Pulse Pulse Resp BP Pulse Ox 08/07/16 12:59 98.4 F 110 H 110 H 14 146/93 92 - VS Reviewed Vital Signs Reviewed: Yes Discharge Clinical Impression: Flank pain, acute, Hematuria Discharge Disposition: Discharged to Home Condition: Good Prescriptions / Orders: Ciprofloxacin HCl [Cipro HCl] 500 mg PO Q12H #20 tab Tamsulosin HCl [Flomax] 0.4 mg PO DAILY #20 cap HYDROcodone/APAP 10/325 Tab [[place] 10/325 Tab] 1 tab PO Q6H PRN #20 tab PRN Reason: Pain Patient Instructions Given at Discharge: Kidney Stones (ED), Urinary Tract Infection in Women (ED) Additional Instructions: He did have some blood in your urine microscopically. I'm not completely sure why you're having this or your right flank pain. CT scan of the abdomen and pelvis with and without contrast showed no definite passage of kidney stones or obstruction of the kidney. Your blood tests was normal. It might be possible that you could have an infection in the kidney on the right, and therefore I'm prescribing an antibiotic to be taken 1 twice daily, at least until urine cultures are returned. Also treat shoe for the possibility of an undetected ureterolith with Flomax, one daily. Hydrocodone/APAP, one every 6 hours as necessary for pain. Strain your urine and check for passage of stone. Follow- up with urology in [place]. Return here anytime if condition worsens. Follow Up With: NONE,NONE [Primary Care Provider] - (Instructions as above. Follow-up with urology in [place]. Return here anytime as necessary.)
== END 2016-08-07 18:45 | disposition home or self-care (01) ==
LOC: ER 12:40
DX: R31.9 Hematuria, unspecified (principal); R30.0 Dysuria; R10.11 Right upper quadrant pain
CPT/HCPCS: 74176; 74177; 80053; 81001; 81003; 85025; 96361; 96374; 96375; 96376; 99283 ×2; J1885; J1170; J2405; J7030

== ENCOUNTER 2016-10-19 18:41 | Emergency (ER) | payer SELFPAY ==
[2016-10-19] MEDS ORDERED: Sodium Chloride 0.9% 1,000 ML PRIMARY IV ONE (18:57)
[2016-10-19] MEDS ORDERED: KETOROLAC 30 MG/1 ML VIAL IVP ONE (18:57)
[2016-10-19] MEDS ORDERED: HYDROmorphone 2 MG/1 ML IVP ONE ×2 (18:57→20:00)
[2016-10-19] MEDS ORDERED: NORMAL SALINE 10 ML SYRINGE FLUSH IVP PRN (18:57)
[2016-10-19 18:58] LABS: BILIRUBIN,URINE NEGATIVE (NEG); CLARITY,URINE Slightly Cloudy (CLEAR); COLOR,URINE YELLOW; GLUCOSE, URINE (UA) NEGATIVE (NEG); NITRATE,URINE NEGATIVE (NEG); OCCULT BLOOD,URINE LARGE (NEG); PH,URINE 5.5 (5.0-8.5); PROTEIN,URINE NEGATIVE (NEG); UROBILINOGEN,URINE 0.2 EU/dL (0.2)
[2016-10-19 18:58] LABS: HEMOGLOBIN 14.7 g/dL (12.0-16.0); MEAN PLATELET VOLUME 9.1 FL (7.4-12.2)
[2016-10-19] MEDS ORDERED: TAMSULOSIN 0.4 MG CAPSULE PO ONE (18:58)
[2016-10-19 19:00] LABS: HEMATOCRIT 43.2 % (37.0-47.0); MEAN CORPUSCULAR VOLUME 97.1 FL (81-99); RED BLOOD COUNT 4.45 10^6/uL (4.20-5.40)
[2016-10-19] MEDS ORDERED: ONDANSETRON 4 MG/2 ML VIAL ONE ×2 (19:01→20:04)
[2016-10-19] MEDS ORDERED: Sodium Chloride 0.9% 1,000 ML ONE (19:01)
[2016-10-19 19:07] LABS: BLOOD UREA NITROGEN 16 mg/dL (7-22); CALCIUM 9.4 mg/dL (8.7-10.7); EST GLOMERULAR FILTRATION > 60 (>60 ml/min/1.73m(2)); SERUM ALBUMIN 4.5 g/dL (3.5-4.8)
[2016-10-19 19:13] LABS: RBC,URINE >100 /hpf; SQUAMOUS EPITHELIAL CELL,UR FEW; URINE SAMPLE TYPE VOIDED SPECIMEN
[2016-10-19 19:23] LABS: PLATELET MORPHOLOGY COMMENT NORMAL MORPHOLOGY (NORM); RBC MORPHOLOGY COMMENT NORMAL MORPHOLOGY (NORM); WBC MORPHOLOGY COMMENT NORMAL MORPHOLOGY (NORM)
[2016-10-19 19:24] LABS: BAND NEUTROPHILS % 1 % (0-10); BASOPHILS % (MANUAL) 0 % (0-1); EOSINOPHILS % (MANUAL) 8 % (0-8); LYMPHOCYTES % (MANUAL) 35 % (10-50); MONOCYTES % (MANUAL) 2 % (0-12); NEUTROPHILS % (MANUAL) 35 % (50-80)
[2016-10-19] MEDS ORDERED: ONDANSETRON 4 MG/2 ML VIAL IVP ONE ×2 (20:00)
--- NOTE | 2016-10-19 20:55 | DI ---
HISTORY: Right flank pain. COMPARISON: None available. TECHNIQUE: Unenhanced images of the abdomen and pelvis were obtained. 370 images. FINDINGS: Limited sections of the lung bases demonstrate no focal pulmonary mass. There is bibasila r atelectasis. The liver and spleen return a normal attenuation. There are clips within the gallbladder fossa. The pancreas demonstrates a normal outline. There is no focal adrenal mass. Both kidneys enhancement symmetrically. Tiny calcifications within the left kidney, subcentimeter in size, favored to represent nonobstructive renal calculi. The aorta and IVC demonstrate no acute findings. There is moderate to severe constipation. There is segmental thickening of sigmoid colon which is pr obably due to peristalsis. There is no free air or free fluid. The appendix is not clearly identifi ed, although there are no secondary signs of appendicitis. The urinary bladder is grossly unremarkable. The uterus is not clearly identified, and possibly aj heather. Please correlate with surgical history. The visualized osseous structures demonstrate no destructive abnormality. There is modest degenerati ve change. No definite radiopaque ureteric calculus. Tiny calcifications within the pelvis favored to represent phleboliths. The presence of contrast limits the sensitivity of the examination. IMPRESSION: 1. There is bibasilar atelectasis. 2. There are clips within the gallbladder fossa. 3. Tiny calcifications within the left kidney, subcentimeter in size, favored to represent nonobstruc tive renal calculi. 4. There is moderate to severe constipation. There is segmental thickening of sigmoid colon which is probably due to peristalsis. 5. The uterus is not clearly identified, and possibly removed. Please correlate with surgical histor y. 6. The visualized osseous structures demonstrate modest degenerative change. 7. Tiny calcifications within the pelvis favored to represent phleboliths. The presence of contrast l imits the sensitivity of the examination.
[2016-10-19] MEDS ORDERED: HYDROcodone-APAP 5 MG -325 MG TABLET PO ONE (21:21)
[2016-10-19] MEDS ORDERED: HYDROcodone-APAP 5 MG -325 MG TABLET PO SCH (21:30)
[2016-10-19 22:08] VITALS: TEMP 98.1
[2016-10-19 22:12] VITALS: RESP 16
--- NOTE | 2016-10-20 03:16 | PDOC ---
Female Problem HPI - General Chief Complaint: Genitourinary Complaint Stated Complaint: Right Flank Pain Date Seen by Provider: 10/19/16 Time Seen by Provider: 18:50 Source: POSITIVE: Patient Exam Limitations: POSITIVE: No limitations Nurse's Notes Reviewed & Considered: Yes - History of Present Illness Initial Comments: The patient is a 40 year old female. 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 She states she has a history of similar episodes in the past and is under the care of Dr. Ayala, urologist, in [place]. She states she has been diagnosed with "kidney stones ". Patient has had a hysterectomy, appendectomy and cholecystectomy. States he is allergic to codeine. She is presently on no medications. 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) Severity: Moderate Quality: REPORTS: "Pain" Context: DENIES: Frequent Bathing, Poor Hygiene, Frequent [place], Known STD Exposure, Unknown STD Exposure, Possible STD Exposure, Multiple Partners, Known , Recent Vaginal Delivery, Recent Delivery, Recent Miscarriage, Recent Trauma, Recent Surgery, Other Location of Pain: REPORTS: Right, Flank Pain Vaginal Bleeding: REPORTS: Other (Status post hysterectomy) : REPORTS: S/P Hysterectomy Urinary Symptoms: REPORTS: Blood in Urine Similar Symptoms Previously: Yes Recent Care Received: REPORTS: Denies Any Prior Injuries Related to Current Complaint?: No - Patient Home Medications Home Medications: Home Medications HYDROcodone/APAP 10/325 Tab [[place] 10/325 Tab] 1 tab PO Q6H PRN #20 tab Tamsulosin HCl [Flomax] 0.4 mg PO DAILY #10 cap 10/19/16 - Patient Allergies Allergies/Adverse Reactions: Allergies Allergy/AdvReac Type Severity Reaction Status Date / Time codeine Allergy Intermediate HIVES Verified 10/19/16 18:42 Past Medical History - heen HEENT History: Denies History Cardiovascular History: Denies History Respiratory History: Denies History Gastrointestinal History: Denies History Genitourinary History: Kidney Stones Endocrine History: Denies History Musculoskeletal History: Denies History Prosthesis or Implant: No Neurological History: Denies History Blood Disorders: Denies History Psychiatric History: Denies History History of Sexually Transmitted Diseases: No Female Reproductive History: Hysterectomy Cancer History: Denies History In Past Year Been Physically Harmed or Verbally Threatened: No History of MDRO: No Tobacco Use: Current Every Day Smoker Alcohol Use: Occasionally Substance Use Type: None Previous Surgical History: Yes Type / Date of Surgery: APPY, TOTAL HYSTERECTOMY, CHOLECYSTECTOMY Significant Family History: No pertinent family hx Past Medical History Reviewed: Reviewed - No Changes ROS - Limitations ROS Limitations: No Limitations Constitution: REPORTS: Denies Symptoms Cardiovascular: REPORTS: Denies Cardiac Symptoms Respiratory: REPORTS: Denies Resp Symptoms Neurological: REPORTS: Denies Neuro Symptoms Gastrointestinal: REPORTS: Denies GI Symptoms Endocrine: REPORTS: Denies Symptoms Musculoskeletal: REPORTS: Denies MS Symptoms Genitourinary: REPORTS: Hematuria Eyes: REPORTS: Denies Symptoms ENT: REPORTS: Denies Symptoms Skin: REPORTS: Denies Skin Symptoms Lympathic: REPORTS: Denies Lympathic Symptoms Immunologic: POSITIVE: Denies Symptoms Psychiatric: POSITIVE: Denies Psych Symptoms Female Genitourinary Exam - General Appearance General Appearance: POSITIVE: Alert, Cooperative, No Acute Distress, No Evidence of Trauma - HEENT HEENT: POSITIVE: Head Inspection Nml, Eyes Inspection Nml, Ears Inspection Nml, Nose Inspection Nml, Oral/Dental Inspect. Nml, Pharynx Inspect. Nml, PERRL, EOMI - Neck Neck: POSITIVE: Normal Inspection, No Apparent Injury - Respiratory Respiratory: POSITIVE: No Respiratory Distress, Breath Sounds Normal, Chest Non- Tender - Cardiovascular Cardiovascular: POSITIVE: Regular Rate and Rhythm, Heart Sounds Normal, Equal Pulses, Strong Pulses Peripheral Pulses: Radial (R): 2+, Radial (L): 2+ - Abdomen Abdomen: POSITIVE: Soft, Normal Bowel Sounds, Non-Tender, No Distention, No Organomegaly - Back Back: POSITIVE: CVA Tenderness (R) (Patient is in no distress. 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 Lab Results Reviewed: Yes Lab Results:: Laboratory Results 10/19/16 10/19/16 Range/Units 18:53 18:54 WBC 12.89 H (4.8-10.8) 10^3/uL RBC 4.45 (4.20-5.40) 10^6/uL Hgb 14.7 (12.0-16.0) g/dL Hct 43.2 (37.0-47.0) % MCV 97.1 (81-99) FL MCH 33.0 H (27-31) PG MCHC 34.0 (33-37) g/dL RDW Std Deviation 44.6 (39-50) fL RDW Coeff of Jennifer 12.8 (11.5-14.5) % Plt Count 385 H (140-350) 10*3/uL MPV 9.1 (7.4-12.2) FL Neutrophils % (Manual) 35 L (50-80) % Band Neutrophils % 1 (0-10) % Lymphocytes % (Manual) 35 (10-50) % Monocytes % (Manual) 2 (0-12) % Eosinophils % (Manual) 8 (0-8) % Basophils % (Manual) 0 (0-1) % Metamyelocytes % Not Reportable Myelocytes % Not Reportable Promyelocytes % Not Reportable Blast Cells Not Reportable WBC Morphology Comment Normal morphology (NORM) Plt Morphology Comment Normal morphology (NORM) RBC Morph Comment Normal morphology (NORM) Sodium 139 (135-145) meq/L Potassium 3.4 L (3.8-5.2) meq/L Chloride 103 (98-112) meq/L Carbon Dioxide 24 (23-33) meq/L Anion Gap 12 (5-20) BUN 16 (7-22) mg/dL Creatinine 0.8 (0.50-1.20) mg/dL Estimated GFR > 60 (>60 ml/min/1.73m(2)) BUN/Creatinine Ratio 20.00 (6-20) Glucose 129 H (78-110) mg/dL Calculated Osmolality 290.0 (267-292) mOsm/kg Calcium 9.4 (8.7-10.7) mg/dL Total Bilirubin 0.5 (0.3-1.2) mg/dL AST 30 (8-39) IU/L ALT 40 (9-52) IU/L Alkaline Phosphatase 81 (38-126) IU/L Total Protein 7.7 (6.1-8.0) g/dL Albumin 4.5 (3.5-4.8) g/dL Globulin 3.2 (2.50-4.10) g/dL Albumin/Globulin Ratio 1.40 (1.3-2.0) mg/g Ur Collection Type Voided specimen Urine Color Yellow Urine Clarity Slightly cloudy (CLEAR) Urine pH 5.5 (5.0-8.5) Ur Specific [place] 1.020 (1.005-1.030) Urine Protein Negative (NEG) mg/dl Urine Glucose (UA) Negative (NEG) mg/dL Urine Ketones Negative (NEG) Urine Occult Blood Large H (NEG) Urine Nitrate Negative (NEG) Urine Bilirubin Negative (NEG) Urine Urobilinogen 0.2 (0.2) EU/dL Ur Leukocyte Esterase Negative (NEG) Urine RBC >100 (NONE) /hpf Urine WBC None (NONE) Ur Squamous Epith Cells Few (NONE) Ur Renal Epithelial Cell None (NONE) Urine Crystals None Urine Bacteria None (NONE) Urine Casts None (NONE) Urine Mucus None (NONE) Urine Trichomonas None (NONE) Urine Yeast None (NONE) Ur Culture Indicated? Culture not set - Patient's Progress Pain Medication Addressed: POSITIVE: Yes (Patient given 30 mg of ketorolac and 1 mg of Dilaudid IV in the emergency room. Discharged on hydrocodone/APAP, 10/ 325.) School/Work Release Addressed: POSITIVE: Not Applicable Re-Examine Time: 21:05 Status: POSITIVE: Unchanged, Re-Examined - Consult Counseled: POSITIVE: Patient, RE: Lab Results, RE: Radiology Results, RE: DX, RE : Need for F/U Patient Care Time - Estimated PCT Patient Care Time (In Minutes): 45 Vital Signs - Recent Vital Signs Vital Signs: Vital Signs (Last 8 hours) Pulse Resp BP Pulse Ox 10/19/16 21:30 93 16 117/91 94 - VS Reviewed Vital Signs Reviewed: Yes Discharge Clinical Impression: Right flank pain, Hematuria of undiagnosed cause Discharge Disposition: Discharged to Home Condition: Stable Prescriptions / Orders: Tamsulosin HCl [Flomax] 0.4 mg PO DAILY #10 cap HYDROcodone/APAP 10/325 Tab [[place] 10/325 Tab] 1 tab PO Q6H PRN #20 tab PRN Reason: Pain Patient Instructions Given at Discharge: Kidney Stones (ED) Additional Instructions: Microscopically, you have blood in your urine. This coupled with your right flank pain makes it likely that you are trying to pass a kidney stone, although the CT scan of the abdomen and pelvis with contrast does not show a definite ureterolith. Take Flomax, one daily. Also hydrocodone/APAP one every 6 hours as necessary for pain. Strain your urine and check for the passage of the stone. Follow-up with your urologist, Dr. Ayala, if you have not passed a stone within 72 hours. If you're hematuria persists, and cannot be attributed to a stone, you may need a cystoscopy to make sure it no bleeding is not coming from the bladder, as might be produced by a bladder tumor or cancer. Follow Up With: NONE,NONE [Primary Care Provider] - (Instructions as above. Follow-up with your urologist. Return here as necessary.)
== END 2016-10-19 21:30 | disposition home or self-care (01) ==
LOC: ER 18:41
DX: R31.9 Hematuria, unspecified (principal); R10.11 Right upper quadrant pain; M54.5 Low back pain
CPT/HCPCS: 74177; 80053; 81001; 81003; 85007; 96361; 96374; 96375; 96376; 99283 ×2; J1885; J1170; J2405; J7030